=== PATIENT | female | born 1965 | race African-American/Black ===

== ENCOUNTER 2016-05-05 10:06 | Outpatient (CLI) | payer OTHER ==
[2016-05-05 10:45] LABS: #Basophils 0.1 thou/uL (0.0-0.2); #Eosinphils 0.2 thou/uL (0.0-0.7); #Lymphocytes 2.1 thou/uL (1.20-3.40); #Monocytes 0.4 thou/uL (0.11-0.59); #Neutrophils 1.5 thou/uL (1.40-6.50); %Basophils 2.1 % (0.0-1.0); %Eosinophils 4.6 % (0.0-10.0); %Monocytes 10.2 % (0.0-10.0); Hematocrit 40.9 % (36.0-47.0); Mean Platelet Volume 8.5 fL (7.4-10.4); White Blood Cell (WBC) Count 4.3 thou/uL (4.8-10.8)
[2016-05-05 11:05] LABS: ALT (SGPT) 24 U/L (0-55); AST (SGOT) 32 U/L (5-34); Alkaline Phosphatase 84 U/L (40-150); Anion Gap 16 mmol/L (10-20); BUN (Urea Nitrogen) 12 mg/dL (7.0-18.7); Bilirubin, Total 0.4 mg/dL (0.2-1.2); Calc. Creatinine Clearance 0 mL/min (70-130); Calcium 9.7 mg/dL (7.8-10.44); Carbon Dioxide 25 mmol/L (22-29); Chloride 106 mmol/L (98-107); Estimated GFR-MDRD 82; Globulin 3.3 g/dL (2.4-3.5); LDL Cholesterol, Calculated 137 mg/dL; Protein, Total 7.8 g/dL (6.0-8.3)
== END 2016-05-05 10:07 ==
LOC: HPCALD 10:06
PROVIDERS: ATTEND Family Medicine
DX: I10 Essential (primary) hypertension (principal)
CPT/HCPCS: 36415; 80053; 80061; 84443; 85025

== ENCOUNTER 2017-02-27 20:41 | Emergency (ER) | payer OTHER ==
[2017-02-27] MEDS ORDERED: Oseltamivir 75 MG CAP ONE (20:53)
== END 2017-02-27 21:00 | disposition home or self-care (01) ==
LOC: BURERS 20:41
DX: J11.1 Influenza due to unidentified influenza virus with other respiratory manifestations (principal); I10 Essential (primary) hypertension
CPT/HCPCS: 99283

== ENCOUNTER 2017-09-08 11:48 | Outpatient (CLI) | payer OTHER ==
--- NOTE | 2017-09-08 14:54 | RAD ---
CERVICAL SPINE: Date: 09/08/17 Five views are submitted. There is loss of the normal cervical lordosis, which could be due to muscle spasm. Disc space narrowing and osteophytes are seen, particularly at the C4 through C7 levels. Ther e is no fracture or soft tissue swelling. The C1 to dens distance is normal. Oblique views demonstrate minimal osteophytes encroaching upon the left foramina at C5-C6 and C6-C7. On the right side, there is minimal encroachment at C4-C5, C5-C6, and C6-C7. There may be some narrow ing of the C3-C4 foramen on the right, but I am not sure if this is real or due to positioning. IMPRESSION: Diffuse cervical spondylosis. If there are radicular findings, then a MRI might be helpful. POS: HOME
== END 2017-09-08 11:49 | disposition home or self-care (01) ==
LOC: BURRAD 11:48
PROVIDERS: ATTEND Family Medicine
DX: M54.2 Cervicalgia (principal); M47.892 Other spondylosis, cervical region
CPT/HCPCS: 72050

== ENCOUNTER 2018-01-29 00:10 | Emergency (ER) | payer OTHER ==
[2018-01-29] MEDS ORDERED: Amoxicillin/Potassium Clav 875 MG TAB ONE (00:59)
== END 2018-01-29 01:00 | disposition home or self-care (01) ==
LOC: BURERS 00:10
DX: J01.90 Acute sinusitis, unspecified (principal); I10 Essential (primary) hypertension; G43.909 Migraine, unspecified, not intractable, without status migrainosus; Z79.899 Other long term (current) drug therapy
CPT/HCPCS: 99283

== ENCOUNTER 2018-06-22 17:53 | Emergency (ER) | payer OTHER ==
[2018-06-22 20:12] LABS: Bilirubin Negative (Negative); Clarity SLIGHTLY (Clear); Glucose, Urine (Dipstick) Negative (Negative); Leukocyte Trace (Negative); Nitrite Negative (Negative); Protein, Urine (Dipstick) Negative (Neg-Trace); Specific Gravity, Urine 1.015 (1.005-1.030); Urobilinogen 0.2 mg/dL (0.2-1.0)
[2018-06-22 20:13] LABS: Blood, Urine Negative (Negative)
[2018-06-22 20:14] LABS: Bacteria/HPF Rare-Few HPF (None Seen); Crystals/HPF None Seen HPF (Negative); Hyaline Casts/LPF NONE SEEN LPF (0-3 Hyaline); Other Casts/LPF None Seen LPF (0-3 Hyaline); Oval Fat Bodies/HPF None Seen HPF (None Seen); RBC/HPF None Seen HPF (0-3); Renal Epithelial None Seen HPF (0-3); Sperm/HPF None Seen HPF (None Seen); Squamous Epithelial 0-3 HPF (0-3); Transitional Epithelial NONE SEEN HPF (0-3); Trichomonas/HPF None Seen HPF (None Seen); WBC/HPF 0-3 HPF (0-3); Yeast-All Forms None Seen HPF (None Seen)
== END 2018-06-22 20:35 | disposition home or self-care (01) ==
LOC: BURERS 17:53
DX: S39.012A Strain of muscle, fascia and tendon of lower back, initial encounter (principal); I10 Essential (primary) hypertension; G43.909 Migraine, unspecified, not intractable, without status migrainosus; Z79.899 Other long term (current) drug therapy; X58.XXXA Exposure to other specified factors, initial encounter
CPT/HCPCS: 81003; 81015; 99283

== ENCOUNTER 2018-08-05 14:27 | Emergency (ER) | payer OTHER | END 2018-08-05 15:07 | disposition home or self-care (01) | LOC: BURERS 14:27 | DX: J06.9 Acute upper respiratory infection, unspecified (principal); I10 Essential (primary) hypertension; Z79.899 Other long term (current) drug therapy | CPT/HCPCS: 99281 ==

== ENCOUNTER 2020-12-12 16:30 | Emergency (ER) | payer OTHER ==
[2020-12-12] MEDS ORDERED: hydrOXYzine 25 MG TAB ONE (17:15)
== END 2020-12-12 17:16 | disposition home or self-care (01) ==
LOC: BURERS 16:30
DX: H10.13 Acute atopic conjunctivitis, bilateral (principal); I10 Essential (primary) hypertension
CPT/HCPCS: 99282

== ENCOUNTER 2023-08-27 11:44 | Outpatient (CLI) | payer OTHER | END 2023-08-27 11:45 | disposition home or self-care (01) | LOC: BURRAD 11:44 | PROVIDERS: ATTEND Physician Assistant | DX: M79.89 Other specified soft tissue disorders (principal); M79.641 Pain in right hand ==